=== PATIENT | male | born 1985 | race Caucasian/White ===

== ENCOUNTER 2018-03-28 20:43 | Emergency (ER) | payer MEDICAID ==
[~2018-03-28] VITALS: Ht 167.6 cm; Wt 75.3 kg
[2018-03-28 20:56] VITALS: Ht 167.6 cm; Wt 75.3 kg
[2018-03-28 22:13] VITALS: BP 142/89
== END 2018-03-28 22:13 | disposition home or self-care (01) ==
LOC: ED 20:43
DX: S51.011A Laceration without foreign body of right elbow, initial encounter (principal); R03.0 Elevated blood-pressure reading, without diagnosis of hypertension; X58.XXXA Exposure to other specified factors, initial encounter; Y93.89 Activity, other specified; Y92.89 Other specified places as the place of occurrence of the external cause; Y99.8 Other external cause status
CPT/HCPCS: 90715; J1885